=== PATIENT | female | born 1965 | race Caucasian/White ===

== ENCOUNTER 2024-03-27 06:17 | Day surgery (SDC) | payer BC, SELFPAY ==
[2024-03-12 12:43] VITALS: BMI 18.0
[2024-03-27] VITALS (7 sets, daily range): BP systolic 101–142; BP diastolic 63–88; BMI 18.0
[2024-03-27] MEDS: TYLENOL 1000 MG PO (06:23)
[2024-03-27] MEDS: CELEBREX 200 MG PO (06:23)
[2024-03-27] MEDS: NORMOSOL-R/PLASMALYTE-A 1000 IV (06:24)
== END 2024-03-27 09:00 | disposition home or self-care (01) ==
LOC: SDS 06:17
PROVIDERS: ATTENDING PHYSICIAN Orthopaedic Surgery; FAMILY PHYSICIAN Internal Medicine
DX: S83.241A Other tear of medial meniscus, current injury, right knee, initial encounter (principal); X58.XXXA Exposure to other specified factors, initial encounter
CPT/HCPCS: 29881; 36415; 93005

== ENCOUNTER → 2024-12-24 08:28 | Outpatient (REF) | payer BC, SELFPAY | LOC: RAD 08:28 | PROVIDERS: ATTENDING PHYSICIAN Internal Medicine Rheumatology; FAMILY PHYSICIAN Internal Medicine | DX: M81.0 Age-related osteoporosis without current pathological fracture (principal) | CPT/HCPCS: 77080 ==

== ENCOUNTER 2025-02-26 06:27 | Day surgery (SDC) | payer BC, SELFPAY | END 2025-02-26 11:30 | disposition home or self-care (01) | LOC: GI 06:27 | PROVIDERS: ATTENDING PHYSICIAN Internal Medicine; FAMILY PHYSICIAN Internal Medicine | DX: Z12.11 Encounter for screening for malignant neoplasm of colon (principal); K64.9 Unspecified hemorrhoids; K57.30 Diverticulosis of large intestine without perforation or abscess without bleeding; D12.2 Benign neoplasm of ascending colon | CPT/HCPCS: 45380; 88305 ==